=== PATIENT | male | born 1975 | race Two or more races ===

== ENCOUNTER 2018-12-18 10:42 | Inpatient (IN) | payer OTHER ==
[2018-12-18 10:57] VITALS: BMI 21.6
--- NOTE | 2018-12-18 11:21 | HP ---
COWS - Scale Resting Pulse: 0= [place] 80 or Below Sweatin=Flushed/Facial Moisture Restless Observation: 0= Sits Still Pupil Size: 0= Normal to Room Light Bone or Joint Aches: 2= Severe Diffuse Aches Runny Nose/ Eye Tearin= Runny Nose/Eyes GI Upset > 30mins: 1= Stomach Cramp Tremor Observation: 0= None Yawning Observation: 0= None Anxiety or Irritability: 2=Irritable/Anxious Goose Flesh Skin: 0=Smooth Skin COWS Score: 9 CIWA Score Nausea/Vomitin-No Nausea/No Vomiting Muscle Tremors: None Anxiety: 4-Mod. Anxious/Guarded Agitation: 0-Normal Activity Paroxysmal Sweats: 2 Orientation: 0-Oriented Tacttile Disturbances: 0-None Auditory Disturbances: 0-None Visual Disturbances: 0-None Headache: 0-None Present CIWA-Ar Total Score: 6 - Admission Criteria OASAS Guidelines: Admission for Medically Managed Detox: Requires at least one of the followin. CIWA greater than 12 2. Seizures within the past 24 hours 3. Delirium tremens within the past 24 hours 4. Hallucinations within the past 24 hours 5. Acute intervention needed for co occurring medical disorder 6. Acute intervention needed for co occurring psychiatric disorder 7. Severe withdrawal that cannot be handled at a lower level of care (continued vomiting, continued diarrhea, abnormal vital signs) requiring intravenous medication and/or fluids 8. Admission ROS [facility] Allergies/Adverse Reactions: Allergies Allergy/AdvReac Type Severity Reaction Status Date / Time No Known Allergies Allergy Verified 12/18/18 10:51 History of Present Illness: pt here requesting detox from opiate and benzo use , reports heroin 10-14 bags ivdu daily , needeles from the exchange , denies sharing , + re-using , denies abscess , OD " a long time ago " 2 years ago , Narcan by EMS . Most recent use 7 am today , current symptoms as above , latest detox completed at this facility 12/07/18 . Heroin use since age 23 states while incarcerated , Narcan Kit @ home from the [employer]. Nicotine ;occasionally cigarettes . Pt states was in [facility] until 2019 , highest dose 100 mg , stopped going voluntarily , participated in program x 4 years with relapse towards the end of attendance . incarcerated [id number] denies sobriety from heroin during incarceration , never in rehab , reports sobriety while in [facility] x 1--2 years. 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 ) Exam Limitations: No Limitations - Ebola screening Have you traveled outside of the country in the last 21 days: No Have you had contact with anyone from an Ebola affected area: No - Review of Systems Constitutional: See HPI, Loss of Appetite EENT: reports: See HPI, Hearing Loss, Other (glasses - myopia) Respiratory: reports: No Symptoms reported Cardiac: reports: No Symptoms Reported GI: reports: See HPI : reports: No Symptoms Reported Musculoskeletal: reports: See HPI Integumentary: reports: See HPI, Other (ivdu left UE) Neuro: reports: Seizure (reports past seizure from benzo w/d) Endocrine: reports: No Symptoms Reported Psychiatric: reports: Orientated x3, Anxious Patient History - Patient Medical History Hx Asthma: No Hx Cardiac Disorders: No Hx Hypertension: No Hx Seizures: No Hx Diabetes: No Hx Gastrointestinal Disorders: No Hx Sexually Transmitted Disorders: No Hx Renal Disease (ESRD): No Hx Depression: Yes - Patient Surgical History Past Surgical History: Yes Other Surgical History: INTESTINAL TRANSPLANT 1977 Anesthesia Reaction: No - PPD History Date: 12/06/18 - Smoking Cessation Smoking history: Current every day smoker Have you smoked in the past 12 months: Yes Aproximately how many cigarettes per day: 5 Hx Chewing Tobacco Use: No Initiated information on smoking cessation: No - Substances abused Heroin Substance route: Injection Frequency: Daily Amount used: 15 BAGS Age of first use: 23 Date of last use: 12/18/18 Alprazolam (Xanax) Substance route: Oral Frequency: Daily Amount used: 2mg- 3tabs Age of first use: 38 Date of last use: 12/15/18 Benzodiazepine (Klonopin) Substance route: Oral Frequency: Daily Amount used: 7tabs Age of first use: 38 Date of last use: 12/17/18 Family Disease History - Family Disease History Family Disease History: Other: Grandparent (PGM - OP ), Father (A & W ), Mother (A & W ), Brother (2 A & W , 1 d. suicide age 20 ), Sister (3 A & W ) Other Family History: no children Admission Physical Exam BHS - Vital Signs Vital Signs: Vital Signs - 24 hr 12/18/18 10:51 Temperature 98.4 F Pulse Rate 79 Respiratory 18 Rate Blood Pressure 123/79 - Physical General Appearance: Yes: Mild Distress, Sweating, Anxious HEENTM: Yes: EOMI, Normocephalic, Normal Voice, Hearing Decreased, Nasal Congestion Respiratory: Yes: Chest Non-Tender, Lungs Clear, Normal Breath Sounds Neck: Yes: No masses,lesions,Nodules, Trachea in good position Cardiology: Yes: Regular Rhythm, Regular Rate, S1, S2 Abdominal: Yes: Non Tender, Soft Musculoskeletal: Yes: full range of Motion, Gait Steady Extremities: Yes: Normal Range of Motion Neurological: Yes: Fully Oriented, Alert, Motor Strength 5/5 Integumentary: Yes: Warm, Track Guerrero - Diagnostic (1) Opioid dependence with withdrawal Current Visit: Yes Status: Acute (2) Sedative, hypnotic or anxiolytic use disorder, mild, abuse Current Visit: Yes Status: Chronic Breathalyzer - Breathalyzer Breathalyzer: 0 Urine Drug Screen - Test Device Lot number: [id number] Expiration date: 09/15/20 - Control Is test valid?: Yes - Results Drug screen NEGATIVE: No Urine drug screen results: FEN-Fentanyl, MOP-Opiates, MTD-Methadone Inpatient Rehab Admission - Rehab Decision to Admit Inpatient rehab admission?: No
[2018-12-18] MEDS ORDERED: MAGNESIUM HYDROX 2400MG/30ML ORAL SUSPENSION 30 ML CUP PO PRN (11:29)
[2018-12-18] MEDS ORDERED: DICYCLOMINE HCL 10 MG CAPSULE PO PRN (11:29)
[2018-12-18] MEDS ORDERED: IBUPROFEN 400 MG TABLET (FP) PO PRN (11:29)
[2018-12-18] MEDS ORDERED: MAG HYDROX/AL HYDROX/SIMETH 30 ML UNIT-DOSE CUP PO PRN (11:29)
[2018-12-18] MEDS ORDERED: cloNIDine HCL 0.1 MG TABLET PO PRN (11:29)
[2018-12-18] MEDS ORDERED: ACETAMINOPHEN 325 MG TABLET (FP) PO PRN ×2 (11:29)
[2018-12-18] MEDS ORDERED: MENTHOL/PHENOL 1 EACH UD MM PRN (11:29)
[2018-12-18] MEDS ORDERED: BISMUTH SUBSALICYLATE 524 MG/30 ML UD PO PRN (11:29)
[2018-12-18] MEDS ORDERED: MAGNESIUM CITRATE 300 ML BOTTLE PO PRN (11:29)
[2018-12-18] MEDS ORDERED: PROCHLORPERAZINE MALEATE 5 MG TABLET PO PRN (11:29)
[2018-12-18] MEDS: clonazePAM 0.5 MG TABLET PO PRN (20:07)
[2018-12-18] MEDS: METHOCARBAMOL 500 MG TABLET PO PRN (20:07)
[2018-12-18] MEDS ORDERED: METHADONE HCL 10 MG TABLET (FOR DETOX USE ONLY) PO ONE (23:00)
[2018-12-18] MEDS: THIAMINE HCL 100 MG TABLET (FP) PO SCH (23:05)
[2018-12-18] MEDS: hydrOXYzine PAMOATE 25 MG CAPSULE (FP) PO PRN (23:13)
[2018-12-19] MEDS: clonazePAM 0.5 MG TABLET PO PRN ×3 (05:59→20:44)
[2018-12-19] MEDS ORDERED: METHADONE HCL 10 MG TABLET (FOR DETOX USE ONLY) PO ONE (10:00)
[2018-12-19] MEDS: PRENATAL VITAMINS W/ FOLIC ACID TABLET (FP) PO SCH (10:28)
[2018-12-19] MEDS: hydrOXYzine PAMOATE 25 MG CAPSULE (FP) PO PRN (13:22)
--- NOTE | 2018-12-19 14:04 | PN ---
S CIWA - CIWA Score Nausea/Vomitin Muscle Tremors: None Anxiety: 3 Agitation: 0-Normal Activity Paroxysmal Sweats: 3 Orientation: 0-Oriented Tacttile Disturbances: 1-Very Mild Itch/Numbness Auditory Disturbances: 0-None Visual Disturbances: 3-Moderate Sensitivity Headache: 0-None Present CIWA-Ar Total Score: 15 BHS COWS - Scale Resting Pulse: 0= [place] 80 or Below Sweatin= Chills/Flushing Restless Observation: 0= Sits Still Pupil Size: 0= Normal to Room Light Bone or Joint Aches: 2= Severe Diffuse Aches Runny Nose/ Eye Tearin= None GI Upset > 30mins: 3= Vomiting/Diarrhea Tremor Observation of Outstretched Hands: 0= None Yawning Observation: 1= 1-2x During Session Anxiety or Irritability: 2=Irritable/Anxious Goose Flesh Skin: 3=Piloerection COWS Score: 12 S Progress Note (SOAP) Subjective: Body Aches, Diarrhea, Stomach Cramping, Vomiting, Sweating. Objective: PATIENT A & O X 3. IN NO ACUTE DISTRESS. 12/19/18 14:00 Vital Signs Temperature 98.1 F 12/19/18 13:55 Pulse Rate 71 12/19/18 13:55 Respiratory Rate 18 12/19/18 13:55 Blood Pressure 125/78 12/19/18 13:55 O2 Sat by Pulse Oximetry (%) ADMISSION LABS ORDERED. 12/19/18 14:01 Assessment: 12/19/18 14:02 WITHDRAWAL SYMPTOMS. Plan: CONTINUE DETOX. INCREASE DAILY PO FLUID / WATER INTAKE. PRN ROBAXIN PO FOR BODY AHCES. PRN PEPTO-BISMOL PO FOR DIARRHEA. PRN COMPAZINE FOR NAUSEA / VOMITING.
[2018-12-19] MEDS: NICOTINE POLACRILEX 2 MG GUM BUC PRN (17:15)
[2018-12-19] MEDS: THIAMINE HCL 100 MG TABLET (FP) PO SCH (22:11)
[2018-12-19] MEDS: MELATONIN 5 MG TABLETS PO PRN (22:11)
[2018-12-19] MEDS: METHOCARBAMOL 500 MG TABLET PO PRN (22:13)
[2018-12-20] MEDS ORDERED: METHADONE HCL 10 MG TABLET (FOR DETOX USE ONLY) PO ONE (10:00)
[2018-12-20] MEDS: PRENATAL VITAMINS W/ FOLIC ACID TABLET (FP) PO SCH (10:12)
[2018-12-20 10:41] LABS: BASO % 0.9 % (0-2.0); HEMATOCRIT 39.2 % (35.4-49); HEMOGLOBIN 12.8 GM/dL (11.7-16.9); LYMPH % 48.7 % (8-40); MCH 27.9 pg (25.7-33.7); MCHC 32.6 g/dl (32.0-35.9); MEAN CELL VOLUME 85.6 fl (80-96); MEAN PLT VOLUME 8.4 fl (7.5-11.1); MONO % 6.4 % (3.8-10.2); PLATELET COUNT 264 K/MM3 (134-434); RBC 4.58 M/mm3 (4.00-5.60); RDW 14.5 % (11.9-15.9); WHITE BLOOD COUNT 4.9 K/mm3 (4.0-10.0)
[2018-12-20 10:52] LABS: ALBUMIN 3.3 g/dl (3.4-5.0); BILIRUBIN,TOTAL 0.3 mg/dL (0.2-1); CALCIUM 9.1 mg/dL (8.5-10.1); CREATININE 0.8 mg/dL (0.55-1.3); POTASSIUM 4.5 mmol/L (3.5-5.1); TOT PROT 6.4 g/dl (6.4-8.2)
--- NOTE | 2018-12-20 11:01 | PN ---
S CIWA - CIWA Score Nausea/Vomitin Muscle Tremors: 2 Anxiety: 2 Agitation: 2 Paroxysmal Sweats: 1-Minimal Palms Moist Orientation: 0-Oriented Tacttile Disturbances: 1-Very Mild Itch/Numbness Auditory Disturbances: 1-Very Mild Visual Disturbances: 0-None Headache: 2-Mild CIWA-Ar Total Score: 13 BHS COWS - Scale Resting Pulse: 0= [place] 80 or Below Sweatin= Chills/Flushing Restless Observation: 1= Difficult to Sit Still Pupil Size: 1= Pupils >than Normal Bone or Joint Aches: 2= Severe Diffuse Aches Runny Nose/ Eye Tearin= Nasal Congestion GI Upset > 30mins: 1= Stomach Cramp Tremor Observation of Outstretched Hands: 2= Slight Tremor Visible Yawning Observation: 1= 1-2x During Session Anxiety or Irritability: 2=Irritable/Anxious Goose Flesh Skin: 0=Smooth Skin COWS Score: 12 BHS Progress Note (SOAP) Subjective: alert,irritable,anxious,interrupted sleep,pain in the body and back Objective: 12/20/18 10:59 Vital Signs Temperature 97.3 F L 12/20/18 09:28 Pulse Rate 57 L 12/20/18 09:28 Respiratory Rate 16 12/20/18 09:28 Blood Pressure 102/56 L 12/20/18 09:28 O2 Sat by Pulse Oximetry (%) Laboratory Last Values WBC 4.9 K/mm3 (4.0-10.0) 12/20/18 07:00 RBC 4.58 M/mm3 (4.00-5.60) 12/20/18 07:00 Hgb 12.8 GM/dL (11.7-16.9) 12/20/18 07:00 Hct 39.2 % (35.4-49) 12/20/18 07:00 MCV 85.6 fl (80-96) 12/20/18 07:00 MCH 27.9 pg (25.7-33.7) 12/20/18 07:00 MCHC 32.6 g/dl (32.0-35.9) 12/20/18 07:00 RDW 14.5 % (11.9-15.9) 12/20/18 07:00 Plt Count 264 K/MM3 (134-434) 12/20/18 07:00 MPV 8.4 fl (7.5-11.1) 12/20/18 07:00 Absolute Neuts (auto) 2.0 K/mm3 (1.5-8.0) 12/20/18 07:00 Neutrophils % 41.0 % (42.8-82.8) L 12/20/18 07:00 Lymphocytes % 48.7 % (8-40) H 12/20/18 07:00 Monocytes % 6.4 % (3.8-10.2) 12/20/18 07:00 Eosinophils % 3.0 % (0-4.5) 12/20/18 07:00 Basophils % 0.9 % (0-2.0) 12/20/18 07:00 Nucleated RBC % 0 % (0-0) 12/20/18 07:00 Sodium 139 mmol/L (136-145) 12/20/18 07:00 Potassium 4.5 mmol/L (3.5-5.1) 12/20/18 07:00 Chloride 104 mmol/L (98-107) 12/20/18 07:00 Carbon Dioxide 32 mmol/L (21-32) 12/20/18 07:00 Anion Gap 4 MMOL/L (8-16) L 12/20/18 07:00 BUN 15 mg/dL (7-18) 12/20/18 07:00 Creatinine 0.8 mg/dL (0.55-1.3) 12/20/18 07:00 Est GFR (CKD-EPI)AfAm 125.04 12/20/18 07:00 Est GFR (CKD-EPI)NonAf 107.88 12/20/18 07:00 Random Glucose 83 mg/dL (74-106) 12/20/18 07:00 Calcium 9.1 mg/dL (8.5-10.1) 12/20/18 07:00 Total Bilirubin 0.3 mg/dL (0.2-1) 12/20/18 07:00 AST 15 U/L (15-37) 12/20/18 07:00 ALT 29 U/L (13-61) 12/20/18 07:00 Alkaline Phosphatase 98 U/L (45-117) 12/20/18 07:00 Total Protein 6.4 g/dl (6.4-8.2) 12/20/18 07:00 Albumin 3.3 g/dl (3.4-5.0) L 12/20/18 07:00 12/20/18 11:00 othr labs pending Assessment: 12/20/18 11:00 withdrawal symptom Plan: continue detox
[2018-12-20] MEDS: clonazePAM 0.5 MG TABLET PO PRN ×2 (13:24→22:16)
[2018-12-20] MEDS: NICOTINE POLACRILEX 2 MG GUM BUC PRN (21:24)
[2018-12-20 21:28] VITALS: TEMP 98.1
[2018-12-20] MEDS: THIAMINE HCL 100 MG TABLET (FP) PO SCH (22:11)
[2018-12-20] MEDS: MELATONIN 5 MG TABLETS PO PRN (22:12)
[2018-12-21] MEDS: clonazePAM 0.5 MG TABLET PO PRN (06:32)
[2018-12-21 09:30] VITALS: BP 107/62; PULSE 57
[2018-12-21] MEDS ORDERED: METHADONE HCL 10 MG TABLET (FOR DETOX USE ONLY) PO ONE (10:00)
[2018-12-21] MEDS: PRENATAL VITAMINS W/ FOLIC ACID TABLET (FP) PO SCH (10:25)
[2018-12-21] MEDS: hydrOXYzine PAMOATE 25 MG CAPSULE (FP) PO PRN (10:29)
--- NOTE | 2018-12-21 16:27 | DS ---
[facility] Detox Discharge Summary Admission Date: 12/18/18 Discharge Date: 12/21/18 - History Present History: Opioid Dependence, Sedative Dependence Additional Comments: RECEIVED NOTICE Jose Cruz OROSCO RN THAT PATIENT EARLIER WALKED DETOX UNIT WITHOUT CONSULTING STAFF / RN ON DETOX UNIT PRIOR TO LEAVING. THUS, PSYCH NURSE UNABLE TO CONDUCT MEDICAL ASSESSMENT ON PATIENT TODAY OR PRIOR TO LEAVING DETOX UNIT. Pertinent Past History: Depression, Anxiety, Reduced Hearing in Right Ear, History of Esophageal Surgery (Transplant of Tissue from Part Of Intestine) due to injury secondary to accidentally Drinking Bleach. - Physical Exam Results Vital Signs: Vital Signs Temperature 98.1 F 12/21/18 09:29 Pulse Rate 57 L 12/21/18 09:29 Respiratory Rate 18 12/21/18 09:29 Blood Pressure 107/62 12/21/18 09:29 O2 Sat by Pulse Oximetry (%) Pertinent Admission Physical Exam Findings: WITHDRAWAL SYMPTOMS. Laboratory Tests 12/20/18 12/20/18 07:00 07:00 WBC 4.9 RBC 4.58 Hgb 12.8 Hct 39.2 MCV 85.6 MCH 27.9 MCHC 32.6 RDW 14.5 Plt Count 264 MPV 8.4 Absolute Neuts (auto) 2.0 Neutrophils % 41.0 L Lymphocytes % 48.7 H Monocytes % 6.4 Eosinophils % 3.0 Basophils % 0.9 Nucleated RBC % 0 Sodium 139 Potassium 4.5 Chloride 104 Carbon Dioxide 32 Anion Gap 4 L BUN 15 Creatinine 0.8 Est GFR (CKD-EPI)AfAm 125.04 Est GFR (CKD-EPI)NonAf 107.88 Random Glucose 83 Calcium 9.1 Total Bilirubin 0.3 AST 15 ALT 29 Alkaline Phosphatase 98 Total Protein 6.4 Albumin 3.3 L LABS NOTED. - Treatment Hospital Course: Detox Protocol Followed, Detoxed Safely - Medication Discharge Medications: Ambulatory Orders NK [No Known Home Medication] 12/04/18 - Diagnosis (1) Opioid dependence with withdrawal Status: Acute (2) Sedative, hypnotic or anxiolytic use disorder, mild, abuse Status: Acute - AMA Did Patient Leave Against Medical Advice: Yes (PATIENT LEFT DETOX UNIT PRIOR TO CONSULTING MEDICAL/NURSING STAFF.)
[2018-12-22] MEDS ORDERED: METHADONE HCL 5 MG TABLET (FOR DETOX USE ONLY) PO ONE (06:00)
== END 2018-12-21 11:12 | disposition left against medical advice (07) | DRG 770 ==
LOC: YASAS 10:42 → Y6N 11:44
PROVIDERS: ADMIT Surgery; ATTEND Surgery
PROC: HZ2ZZZZ Detoxification Services for Substance Abuse Treatment (ICD-10-PCS; principal; 2018-12-18)
DX: F11.23 Opioid dependence with withdrawal (principal); F13.230 Sedative, hypnotic or anxiolytic dependence with withdrawal, uncomplicated; F17.210 Nicotine dependence, cigarettes, uncomplicated; H91.91 Unspecified hearing loss, right ear
CPT/HCPCS: 36415; 80053; 85025; J0735

== ENCOUNTER 2021-03-12 12:09 | Inpatient (IN) | payer OTHER ==
[2021-03-12 13:24] VITALS: BMI 21.1
[2021-03-12] MEDS ORDERED: BISMUTH SUBSALICYLATE 262 MG/15 ML BTL PO PRN (14:54)
[2021-03-12] MEDS ORDERED: MAG HYDROX/AL HYDROX/SIMETH 30 ML UNIT-DOSE CUP PO PRN (14:54)
[2021-03-12] MEDS ORDERED: MENTHOL/PHENOL 1 EACH UD MM PRN (14:54)
[2021-03-12] MEDS ORDERED: ONDANSETRON *ODT* 4 MG TABLET SL PRN (14:54)
[2021-03-12] MEDS ORDERED: MAGNESIUM HYDROX 2400MG/30ML ORAL SUSPENSION 30 ML CUP PO PRN (14:54)
[2021-03-12] MEDS ORDERED: MAGNESIUM CITRATE 300 ML BOTTLE PO PRN (14:54)
[2021-03-12] MEDS ORDERED: clonazePAM 0.5 MG ODT TABLETS SL PRN (14:54)
[2021-03-12] MEDS ORDERED: methaDONE HCL 10 MG TABLET (FOR DETOX USE ONLY) PO ONE (14:54)
[2021-03-12] MEDS ORDERED: NICOTINE 10 MG CARTRIDGE (INHALER) IH PRN (14:54)
[2021-03-12] MEDS ORDERED: ACETAMINOPHEN 325 MG TABLET (FP) PO PRN ×2 (14:54)
[2021-03-12] MEDS ORDERED: cloNIDine HCL 0.1 MG TABLET PO PRN (14:54)
[2021-03-12 16:24] LABS: ALBUMIN 3.7 g/dl (3.4-5.0)
[2021-03-12 16:25] LABS: BLOOD UREA NITROGEN 13.8 mg/dL (7-18); HEMATOCRIT 42.8 % (35.4-49); HEMOGLOBIN 14.2 GM/dL (11.7-16.9); MCH 29.1 pg (25.7-33.7); MCHC 33.3 g/dl (32.0-35.9); MEAN CELL VOLUME 87.5 fl (80-96); MEAN PLT VOLUME 8.3 fl (7.5-11.1); PLATELET COUNT 392 10^3/uL (134-434); RBC 4.89 M/mm3 (4.00-5.60); RDW 15.3 % (11.9-15.9); WHITE BLOOD COUNT 11.6 K/mm3 (4.0-10.0)
[2021-03-12 16:28] LABS: CREATININE 0.8 mg/dL (0.55-1.3)
[2021-03-12 16:29] LABS: BILIRUBIN,TOTAL 0.6 mg/dL (0.2-1); TOT PROT 7.6 g/dl (6.4-8.2)
[2021-03-12 17:18] LABS: HIV INTERPRETATION NEGATIVE (NEGATIVE)
[2021-03-12] MEDS: diazePAM 5 MG TABLET PO SCH ×2 (18:24→22:08)
[2021-03-12] MEDS: hydrOXYzine PAMOATE 25 MG CAPSULE (FP) PO SCH ×2 (18:24→22:08)
[2021-03-12] MEDS: MELATONIN 5 MG TABLETS PO SCH (22:08)
[2021-03-12] MEDS: THIAMINE HCL 100 MG TABLET (FP) PO SCH (22:08)
[2021-03-13] MEDS: hydrOXYzine PAMOATE 25 MG CAPSULE (FP) PO SCH ×5 (05:45→22:11)
[2021-03-13] MEDS: diazePAM 5 MG TABLET PO SCH ×4 (05:45→22:11)
[2021-03-13] MEDS ORDERED: methaDONE HCL 10 MG TABLET (FOR DETOX USE ONLY) ONE (09:16)
[2021-03-13] MEDS: PRENATAL VITAMINS W/ FOLIC ACID TABLET (FP) PO SCH (10:22)
[2021-03-13] MEDS: IBUPROFEN 400 MG TABLET (FP) PO PRN (13:21)
[2021-03-13] MEDS: MELATONIN 5 MG TABLETS PO SCH (22:11)
[2021-03-13] MEDS: METHOCARBAMOL 500 MG TABLET PO PRN (22:11)
[2021-03-13] MEDS: THIAMINE HCL 100 MG TABLET (FP) PO SCH (22:11)
[2021-03-14] MEDS: diazePAM 5 MG TABLET PO SCH ×3 (05:34→22:27)
[2021-03-14] MEDS: hydrOXYzine PAMOATE 25 MG CAPSULE (FP) PO SCH ×5 (05:34→22:27)
[2021-03-14] MEDS: IBUPROFEN 400 MG TABLET (FP) PO PRN (05:35)
[2021-03-14] MEDS: diazePAM 5 MG TABLET PO PRN (09:52)
[2021-03-14] MEDS: METHOCARBAMOL 500 MG TABLET PO PRN (09:53)
[2021-03-14] MEDS: PRENATAL VITAMINS W/ FOLIC ACID TABLET (FP) PO SCH (09:54)
[2021-03-14] MEDS ORDERED: methaDONE HCL 10 MG TABLET (FOR DETOX USE ONLY) PO ONE (10:00)
[2021-03-14] MEDS: MELATONIN 5 MG TABLETS PO SCH (22:27)
[2021-03-14] MEDS: THIAMINE HCL 100 MG TABLET (FP) PO SCH (22:27)
[2021-03-15] MEDS: hydrOXYzine PAMOATE 25 MG CAPSULE (FP) PO SCH ×4 (05:21→14:15)
[2021-03-15] MEDS: IBUPROFEN 400 MG TABLET (FP) PO PRN (05:23)
[2021-03-15] MEDS ORDERED: diazePAM 5 MG TABLET PO SCH (06:00)
[2021-03-15] MEDS ORDERED: methaDONE HCL 10 MG TABLET (FOR DETOX USE ONLY) ONE (09:47)
[2021-03-15] MEDS: PRENATAL VITAMINS W/ FOLIC ACID TABLET (FP) PO SCH (10:05)
[2021-03-15] MEDS: diazePAM 5 MG TABLET PO PRN ×2 (10:05→14:13)
[2021-03-15] MEDS: METHOCARBAMOL 500 MG TABLET PO PRN (10:05)
[2021-03-15 14:05] VITALS: BP 110/64; PULSE 78; TEMP 97
[2021-03-16] MEDS ORDERED: diazePAM 5 MG TABLET PO ONE (06:00)
[2021-03-16] MEDS ORDERED: methaDONE HCL 10 MG TABLET (FOR DETOX USE ONLY) PO ONE (10:00)
== END 2021-03-15 16:40 | disposition left against medical advice (07) | DRG 770 ==
LOC: YASAS 12:09 → Y6N 15:32
PROVIDERS: ADMIT Allergy & Immunology; ATTEND Allergy & Immunology
PROC: HZ2ZZZZ Detoxification Services for Substance Abuse Treatment (ICD-10-PCS; principal; 2021-03-12)
DX: F11.23 Opioid dependence with withdrawal (principal); F10.230 Alcohol dependence with withdrawal, uncomplicated; F13.20 Sedative, hypnotic or anxiolytic dependence, uncomplicated; F17.210 Nicotine dependence, cigarettes, uncomplicated; F19.280 Other psychoactive substance dependence with psychoactive substance-induced anxiety disorder; F19.282 Other psychoactive substance dependence with psychoactive substance-induced sleep disorder; F41.9 Anxiety disorder, unspecified; F51.05 Insomnia due to other mental disorder; H91.91 Unspecified hearing loss, right ear; R63.4 Abnormal weight loss; Z68.21 Body mass index [BMI] 21.0-21.9, adult; Z98.890 Other specified postprocedural states
CPT/HCPCS: 36415; 71046-TC-FY; 80053; 85027; 86780; 87389; 93005; 93010; C9803; U0003; U0005

== ENCOUNTER 2021-05-23 16:19 | Inpatient (IN) | payer OTHER ==
[2021-05-23 18:06] VITALS: BMI 22.5
[2021-05-23] MEDS ORDERED: MAGNESIUM HYDROX 2400MG/30ML ORAL SUSPENSION 30 ML CUP PO PRN (20:44)
[2021-05-23] MEDS ORDERED: IBUPROFEN 400 MG TABLET (FP) PO PRN (20:44)
[2021-05-23] MEDS ORDERED: MAGNESIUM CITRATE 300 ML BOTTLE PO PRN (20:44)
[2021-05-23] MEDS ORDERED: MENTHOL/PHENOL 1 EACH UD MM PRN (20:44)
[2021-05-23] MEDS ORDERED: ONDANSETRON *ODT* 4 MG TABLET SL PRN (20:44)
[2021-05-23] MEDS ORDERED: BISMUTH SUBSALICYLATE 524 MG/30 ML PO PRN (20:44)
[2021-05-23] MEDS ORDERED: ACETAMINOPHEN 325 MG TABLET (FP) PO PRN ×2 (20:44)
[2021-05-23] MEDS ORDERED: MAG HYDROX/AL HYDROX/SIMETH 30 ML UNIT-DOSE CUP PO PRN (20:44)
[2021-05-23] MEDS ORDERED: methaDONE HCL 10 MG TABLET (FOR DETOX USE ONLY) PO ONE (20:47)
[2021-05-23] MEDS ORDERED: cloNIDine HCL 0.1 MG TABLET PO PRN (20:47)
[2021-05-23] MEDS: THIAMINE HCL 100 MG TABLET (FP) PO SCH (23:14)
[2021-05-23] MEDS: MELATONIN 5 MG TABLETS PO SCH (23:14)
[2021-05-24] MEDS: METHOCARBAMOL 500 MG TABLET PO PRN (05:52)
[2021-05-24] MEDS: NICOTINE POLACRILEX 2 MG GUM BUC PRN ×4 (05:53→22:29)
[2021-05-24] MEDS ORDERED: methaDONE HCL 10 MG TABLET (FOR DETOX USE ONLY) ONE (09:47)
[2021-05-24] MEDS: NICOTINE 14 MG/24 HOURS TOPICAL PATCH TD SCH (10:14)
[2021-05-24] MEDS: PRENATAL VITAMINS W/ FOLIC ACID TABLET (FP) PO SCH (10:16)
[2021-05-24] MEDS: THIAMINE HCL 100 MG TABLET (FP) PO SCH (22:28)
[2021-05-24] MEDS: MELATONIN 5 MG TABLETS PO SCH (22:28)
[2021-05-25] MEDS: NICOTINE POLACRILEX 2 MG GUM BUC PRN ×2 (05:52→10:32)
[2021-05-25] MEDS ORDERED: methaDONE HCL 10 MG TABLET (FOR DETOX USE ONLY) PO ONE (10:00)
[2021-05-25] MEDS: NICOTINE 14 MG/24 HOURS TOPICAL PATCH TD SCH (10:31)
[2021-05-25] MEDS: PRENATAL VITAMINS W/ FOLIC ACID TABLET (FP) PO SCH (10:32)
[2021-05-25 14:55] LABS: ALBUMIN 3.4 g/dl (3.4-5.0); BLOOD UREA NITROGEN 14.4 mg/dL (7-18); CALCIUM 8.9 mg/dL (8.5-10.1)
[2021-05-25 14:57] LABS: HEMATOCRIT 36.3 % (35.4-49); HEMOGLOBIN 12.3 GM/dL (11.7-16.9); MCH 28.9 pg (25.7-33.7); MEAN CELL VOLUME 85.2 fl (80-96); MEAN PLT VOLUME 8.3 fl (7.5-11.1); PLATELET COUNT 252 10^3/uL (134-434); RBC 4.27 M/mm3 (4.00-5.60); RDW 13.1 % (11.9-15.9); WHITE BLOOD COUNT 5.6 K/mm3 (4.0-10.0)
[2021-05-25 14:58] LABS: CREATININE 0.7 mg/dL (0.55-1.3)
[2021-05-25 15:00] LABS: BILIRUBIN,TOTAL 0.3 mg/dL (0.2-1)
[2021-05-25 15:03] LABS: TOT PROT 6.7 g/dl (6.4-8.2)
[2021-05-25] MEDS: MELATONIN 5 MG TABLETS PO SCH (22:13)
[2021-05-25] MEDS: THIAMINE HCL 100 MG TABLET (FP) PO SCH (22:13)
[2021-05-25] MEDS: diazePAM 5 MG TABLET PO PRN (22:14)
[2021-05-25] MEDS: METHOCARBAMOL 500 MG TABLET PO PRN (22:14)
[2021-05-26] MEDS ORDERED: methaDONE HCL 10 MG TABLET (FOR DETOX USE ONLY) ONE (08:34)
[2021-05-26] MEDS: NICOTINE 14 MG/24 HOURS TOPICAL PATCH TD SCH (10:05)
[2021-05-26] MEDS: PRENATAL VITAMINS W/ FOLIC ACID TABLET (FP) PO SCH (10:07)
[2021-05-26] MEDS: diazePAM 5 MG TABLET PO PRN ×3 (10:08→22:15)
[2021-05-26] MEDS: THIAMINE HCL 100 MG TABLET (FP) PO SCH (22:16)
[2021-05-26] MEDS: MELATONIN 5 MG TABLETS PO SCH (22:16)
[2021-05-27] MEDS: diazePAM 5 MG TABLET PO PRN ×3 (05:50→15:48)
[2021-05-27 09:20] VITALS: BP 101/56; PULSE 59; TEMP 96.8
[2021-05-27] MEDS ORDERED: methaDONE HCL 10 MG TABLET (FOR DETOX USE ONLY) PO ONE (10:00)
[2021-05-27] MEDS: PRENATAL VITAMINS W/ FOLIC ACID TABLET (FP) PO SCH (10:58)
[2021-05-27] MEDS: NICOTINE 14 MG/24 HOURS TOPICAL PATCH TD SCH (10:58)
[2021-05-27] MEDS: METHOCARBAMOL 500 MG TABLET PO PRN (11:00)
== END 2021-05-27 17:27 | disposition left against medical advice (07) | DRG 770 ==
LOC: YASAS 16:19 → Y3N 22:09
PROVIDERS: ADMIT Allergy & Immunology; ATTEND Allergy & Immunology
PROC: HZ2ZZZZ Detoxification Services for Substance Abuse Treatment (ICD-10-PCS; principal; 2021-05-23)
DX: F11.23 Opioid dependence with withdrawal (principal); F10.10 Alcohol abuse, uncomplicated; F13.20 Sedative, hypnotic or anxiolytic dependence, uncomplicated; F12.20 Cannabis dependence, uncomplicated; F17.210 Nicotine dependence, cigarettes, uncomplicated; F19.280 Other psychoactive substance dependence with psychoactive substance-induced anxiety disorder; F19.282 Other psychoactive substance dependence with psychoactive substance-induced sleep disorder; F32.A Depression, unspecified; F41.9 Anxiety disorder, unspecified; I51.7 Cardiomegaly; H91.91 Unspecified hearing loss, right ear; M54.50 Low back pain, unspecified; G89.29 Other chronic pain
CPT/HCPCS: 36415; 80053; 85027; 86780; 93005; 93010; C9803; U0003; U0005